=== PATIENT | male | born 1975 | race Caucasian/White ===

== ENCOUNTER 2020-10-15 13:49 | Emergency (ER) | payer OTHER ==
[~2020-10-15] VITALS: Ht 180.3 cm; Wt 83.9 kg
[2020-10-15 13:50] VITALS: BP_SYST 162
[2020-10-15 15:58] LABS: BASOPHILS % (AUTO) 0.4 % (0.0-2.0); EOSINOPHILS # (AUTO) 0.1 K/uL (0.0-0.4); EOSINOPHILS % (AUTO) 1.3 % (0.0-4.0); HEMATOCRIT 46.5 % (36-54); HEMOGLOBIN 15.8 g/dL (14.0-18.0); LYMPHOCYTES # (AUTO) 2.2 K/uL (1.0-5.5); LYMPHOCYTES % (AUTO) 28.8 % (20.5-51.5); MEAN CORPUSCULAR HEMOGLOBIN 31 pg (27-31); MEAN CORPUSCULAR HGB CONC 34 % (32-36); MEAN CORPUSCULAR VOLUME 92 fL (79.0-98.0); MONOCYTES # (AUTO) 0.5 K/uL (0.0-1.0); MONOCYTES % (AUTO) 7.2 % (1.7-9.3); NEUTROPHILS # (AUTO) 4.7 K/uL (1.8-7.7); NEUTROPHILS % (AUTO) 62.3 % (40.0-70.0); PLATELET COUNT (AUTO) 259 K/uL (130-430); RED BLOOD CELL COUNT(AUTO) 5.08 MIL/uL (4.2-6.2); RED CELL DISTRIBUTION WIDTH 13.1 % (9.0-15.0); WHITE BLOOD COUNT (AUTO) 7.5 K/uL (4.8-10.8)
[2020-10-15 16:10] LABS: BILIRUBIN,URINE NEGATIVE (NEGATIVE); BLOOD, URINE NEGATIVE (NEGATIVE); CLARITY/URINE CLEAR (CLEAR); COLOR,URINE YELLOW (YELLOW); GLUCOSE,URINE NEGATIVE (NEGATIVE); KETONES,URINE NEGATIVE (NEGATIVE); LEUKOCYTE ESTERASE ,URINE NEGATIVE (NEGATIVE); NITRITE, URINE NEGATIVE (NEGATIVE); PROTEIN URINE NEGATIVE (NEGATIVE); UROBILINOGEN,URINE 0.2 (0.2-1.0)
[2020-10-15 16:11] LABS: CALCIUM 9.3 mg/dL (8.4-11.0); CREATININE 1.24 mg/dL (0.55-1.30); POTASSIUM 4.6 mmol/L (3.5-5.1)
[2020-10-15 16:17] LABS: ALBUMIN 3.8 g/dL (3.4-4.8); TOTAL BILIRUBIN 0.7 mg/dL (0.0-1.0)
[2020-10-15] MEDS ORDERED: TRAZ-250 PO (17:32)
[2020-10-15 17:46] VITALS: BP_SYST 112
== END 2020-10-15 17:48 | disposition home or self-care (01) ==
LOC: SED 13:49
DX: R06.02 Shortness of breath (principal); F43.20 Adjustment disorder, unspecified; E78.00 Pure hypercholesterolemia, unspecified
CPT/HCPCS: 36415; 71045; 80053; 80061; 81003; 83880; 84484; 85025; 93005; 99285

== ENCOUNTER 2020-10-25 11:50 | Emergency (ER) | payer OTHER, SELFPAY ==
[~2020-10-25] VITALS: Ht 180.3 cm; Wt 83.9 kg
[2020-10-25 11:50] VITALS: BP_SYST 118
[~2020-10-25 11:50] MED LIST: TRAZ-250 PO
--- NOTE | 2020-10-25 11:50 | NUR ---
BROUGHT BACK TO BED #2 AND TRIAGED. REPORT GIVEN TO VALENTINE
--- NOTE | 2020-10-25 12:00 | NUR ---
Pt came to ER with multiple complaints, presents anxious. Pt resting in gurney, no distress noted, VSS awaiting MD.
--- NOTE | 2020-10-25 12:01 | NUR ---
DR CARY AT BEDSIDE FOR EVALUATION
--- NOTE | 2020-10-25 13:27 | NUR ---
Pt in [place]
[2020-10-25] MEDS ORDERED: FLUT16SP16 NS (13:52)
--- NOTE | 2020-10-25 14:08 | NUR ---
Patient given written and verbal discharge instructions and verbalizes understanding. ER MD discussed with patient the results and treatment provided. Patient in stable condition. ID arm band removed. Rx of Flonase given. Patient educated on pain management and to follow up with PMD. Pain Scale 0/10. Opportunity for questions provided and answered. Medication side effect fact sheet provided.
[2020-10-25 14:09] VITALS: BP_SYST 129
== END 2020-10-25 14:08 | disposition home or self-care (01) ==
LOC: SED 11:50
DX: J30.9 Allergic rhinitis, unspecified (principal); F41.9 Anxiety disorder, unspecified; E78.00 Pure hypercholesterolemia, unspecified; Z20.822 Contact with and (suspected) exposure to COVID-19; Z79.899 Other long term (current) drug therapy
CPT/HCPCS: 36415; 93005; 99284